=== PATIENT | female | born 1975 | race Caucasian/White ===

== ENCOUNTER 2017-04-05 11:35 | Emergency (ER) | payer OTHER ==
[~2017-04-05] VITALS: Ht 157.5 cm; Wt 136.5 kg
[2017-04-05 11:37] VITALS: BP 120/73
== END 2017-04-05 12:57 | disposition left against medical advice (07) ==
LOC: ER 11:35
DX: Z53.21 Procedure and treatment not carried out due to patient leaving prior to being seen by health care provider (principal)